=== PATIENT | male | born 2000 | race Hispanic/Latino ===

== ENCOUNTER 2019-05-20 22:02 | Emergency (ER) | payer OTHER ==
--- NOTE | 2019-05-20 22:37 | RAD ---
Left RIBS 3 views Chest one view HISTORY: Chest wall injury. FINDINGS: No displaced rib fracture or pneumothorax. Cardiac silhouette and pulmonary vasculature are unremarkable. Mediastinum is midline. No lobar conso lidation. IMPRESSION: Normal exam.
== END 2019-05-20 22:39 | disposition home or self-care (01) ==
LOC: SCSER 22:02
DX: R07.81 Pleurodynia (principal); E10.9 Type 1 diabetes mellitus without complications